=== PATIENT | male | born 1965 | race Caucasian/White ===

== ENCOUNTER 2019-06-12 08:21 | Day surgery (SDC) | payer OTHER ==
[~2019-06-12] VITALS: Ht 175.3 cm; Wt 117.9 kg
[~2019-06-12 08:21] MED LIST: GLUCOPHAGE1000 MG PO; GLUCOTROL 5 MG T5 MG PO; HCTZ25 MG PO; TAPAZOLE 10 MG10 MG PO; VASOTEC10 MG PO; XULTOPHY SQ
[2019-06-12 08:37] LABS: HEMATOCRIT 47.9 % (42.0-54.0); HEMOGLOBIN 15.8 g/dL (13.5-17.5); MCH 31.2 pg (26.0-34.0); MCV 94.7 fL (80.0-100.0); MEAN PLATELET VOLUME 11.4 fL (7.4-10.4); RBC 5.06 10x6/uL (4.20-6.10); RDW 13.2 % (11.5-14.5); WBC 9.4 10x3/uL (4.8-10.8)
[2019-06-12 08:45] LABS: ANION GAP 9.8 mmol/L (8-16); CARBON DIOXIDE 30.4 mmol/L (21.0-32.0); CREATININE - SERUM 1.5 mg/dL (0.6-1.3); POTASSIUM - SERUM 5.2 mmol/L (3.5-5.1)
[2019-06-12 09:21] VITALS: BP 124/79; Ht 175.3 cm; Wt 117.9 kg
--- NOTE | 2019-06-12 17:50 | NUR ---
PT DC INSTRUCTIONS REVIEWED AT THIS TIME, PT VERBALIZES UNDERSTANDING. PT IV REMOVED AT THIS TIME, IBTACT, NO REDNESS OR SWELLING NOTED AT SITE.
--- NOTE | 2019-06-12 18:00 | NUR ---
PT LEAVING OPS VIA WC AT THIS TIME, NAD NOTED.
[2019-06-15 11:09] LABS: FUNGUS STAIN Final report (())
[2019-06-18 16:08] LABS: FUNGUS MYCOLOGY CULTURE Preliminary report (())
--- NOTE | 2019-06-22 09:06 | HP ---
PATIENT: TONJA DEL CID MEDICAL RECORD: [id number] ACCOUNT: [id number] LOCATION:[facility] : 63 ADMISSION DATE: 06/12/19 PCP: AUSTYN CRUZ DO HISTORY AND PHYSICAL EXAMINATION HISTORY OF PRESENT ILLNESS: Mr. Del Cid is 53 years old. He has been having problems with nasal obstruction with a ball-valving type affect. He has been found to have a large right-sided nasal polyp. PAST MEDICAL HISTORY: Includes diabetes, hypertension, hyperthyroidism. CURRENT MEDICATIONS: Include glipizide, metformin, methimazole, enalapril, hydrochlorothiazide, Xultophy. PHYSICAL EXAMINATION: GENERAL: He is healthy-appearing, developmentally normal. FACE: Normal and symmetric. EYES: Sclerae and conjunctivae are normal. EARS: Canals and TMs normal. NOSE: He has a large right-sided antrochoanal polyp obstructing the entire posterior nasal cavity. CHEST: Clear. CARDIOVASCULAR: Regular rate and rhythm, no murmur. EXTREMITIES: Normal. IMPRESSION: Nasal obstruction, right antrochoanal polyp. PLAN: Right nasal polypectomy, right middle meatal antrostomy. CT shows opacification of the right maxillary sinus. TRANSINT:[id number] Voice Confirmation ID: [id number] DOCUMENT ID: [id number] JIM SAHU MD at 0906 CC: [id number] DICTATION DATE: 06/10/19 1054 [employer]: 06/10/19 1109 [facility] 06/12/[address] [address]
--- NOTE | 2019-06-22 09:06 | OP ---
PATIENT NAME: TONJA DEL CID MEDICAL RECORD: [id number] :63 LOCATION:[facility] ADMISSION DATE: SURGEON: KHURRAM CORDOVA MD DATE OF OPERATION: 06/12/2019 PREOPERATIVE DIAGNOSES: Right nasal obstruction, right nasal polyps, and right chronic maxillary sinusitis. POSTOPERATIVE DIAGNOSES: Right nasal obstruction, right nasal polyps, and right chronic maxillary sinusitis. PROCEDURES: Right middle meatal antrostomy, right endoscopic nasal polypectomy. SURGEON: Khurram Cordova MD ANESTHESIA: General orotracheal. BLOOD LOSS: Less than 5 cc. SPECIMENS: Polyps in the right nasal cavity. Cultures and path from the right maxillary sinus. NASAL PACKING: None. COMPLICATIONS: None. DISPOSITION: Recovery stable. PROCEDURE IN DETAIL: He was brought to the operating room and placed in supine position, sedated and intubated by anesthesia. The table was turned 90 degrees. Head drape was applied. He was positioned, prepped and draped in the usual fashion for nasal surgery. His nose had been decongested with Afrin preoperatively. The uncinate lateral nasal wall and middle turbinate were injected with a total of less than 0.5 cc of 1% lidocaine with 1:100,000 epinephrine on 1-07/23 inch 27-gauge needle with a 1 cc syringe and the polyp was injected as well and then 2 Afrin pledgets were placed in each side of the nose. After waiting for decongestion, all Afrin pledgets were removed. The left side was examined using the 0-degree scope. Inferior middle meatus and inferior middle turbinate, nasal vault, nasopharynx were all normal. Polyp was visible posteriorly on the opposite side of the nasopharynx. The right side was then examined. The inferior turbinate was normal. Large polyp filling the entire posterior nasal cavity. It was grasped in the middle meatus near its origin and removed with a straight biting forceps. This was sent for path. The remainder of that was removed with upbiting forceps and then the uncinate was fractured anteriorly with a ball tip probe. Microdebrider was used to take down its portion of the uncinate and remove some more of that polypoid tissue. There was polyp emanating from the middle meatus that was pulled out of the maxillary sinus, repeatedly pulling out a cm or so at the time. That was removed and sent for path as well and then the sinus was visualized and the 30-degree scope was full of material. This was removed using a long curved olive tip suction. This was solid, hard, greenish material, not really soft at all, looked almost a rock like. This was removed in several pieces, broken up and removed. This was sent for path as well as cultures. Once all the visible material was cleaned out, it was rinsed repeatedly with large curved olive tip suction and 30 cc syringe with saline repeatedly until it was completely clean. [place] was opened. There was OPERATIVE REPORT [id number] TONJA DEL CID no bleeding. The nasopharynx was suctioned well, the entire area was inspected again. Some mupirocin ointment was placed in the sinus and then the middle meatus. The pharynx was suctioned. He was awakened, extubated, and transported to recovery in good condition. No complication. TRANSINT:[id number] Voice Confirmation ID: [id number] DOCUMENT ID: [id number] KHURRAM CORDOVA MD at 0906 CC: [id number] DICTATION DATE: 06/17/19945 [employer]: 06/17/19 0958 [facility] 06/12/19 [facility] [address] [place] [address]
== END 2019-06-12 18:00 | disposition home or self-care (01) ==
LOC: D.OPS 08:21 → D.PAN 14:00 → D.OPS 14:00
PROVIDERS: Anesthesiology; ATTEND Otolaryngology
DX: J34.89 Other specified disorders of nose and nasal sinuses (principal); J33.9 Nasal polyp, unspecified; J32.0 Chronic maxillary sinusitis